=== PATIENT | female | born 1960 | race African-American/Black ===

== ENCOUNTER 2016-11-25 08:47 | Emergency (ER) | payer OTHER ==
[~2016-11-25] VITALS: Ht 170.2 cm; Wt 112.9 kg
[~2016-11-25 08:47] MED LIST: CYCLOBENZAPRINE10 MG PO; DESYREL 150 MG150 MG PO; DIAZEPAM5 MG PO; DICLOFENAC SODI75 MG PO; FIORICET 50-301 EACH PO; FLEXERIL10 MG PO; KENALOG,ARISTOC15 G2 TP; LEVAQUIN750 MG PO; LIDODERM 5% P1 PATCH TD; LORATADINE10 M2 PO; LORCET 5-325 M1 EACH PO; MELOXICAM7.5 MG PO; METHIMAZOLE5 MG PO; MUCUS ER600 MG PO; NAPROSYN500 MG PO; NAPROXEN500 MG PO; NORCO 5/3251 TABLET PO; OMEPRAZOLE20 MG PO; PAROXETINE HCL10 MG PO; PRAMIPEXOLE D0.25 MG PO; PREDNISONE20 MG PO; PREMARIN0.625 MG PO; PROAIR HFA8.5 GM IH; PROVENTIL,2.5 MG/3 M IH; ROBITUSSIN NIG118 ML PO; TESSALON PERLE100 MG PO; TYLENOL WITH C1 EACH PO; ULTRAM50 MG PO; VALIUM5 MG PO; ZITHROMAX250 MG PO
[2016-11-25] MEDS ORDERED: PREMARIN0.625 MG PO (10:15)
[2016-11-25] MEDS ORDERED: CYCLOBENZAPRINE10 MG PO (10:15)
[2016-11-25] MEDS ORDERED: ROPINIROLE HCL1 MG PO (10:15)
[2016-11-25] MEDS ORDERED: MELOXICAM15 MG PO (10:16)
[2016-11-25] MEDS ORDERED: TOPIRAMATE50 MG PO (10:16)
[2016-11-25] MEDS ORDERED: CLONAZEPAM0.5 MG PO (10:17)
[2016-11-25] MEDS ORDERED: AMITRIPTYLINE100 MG PO (10:17)
[2016-11-25 11:46] VITALS: BP 139/88
== END 2016-11-25 11:47 | disposition home or self-care (01) ==
LOC: EME 08:47
DX: S16.1XXA Strain of muscle, fascia and tendon at neck level, initial encounter (principal); S40.012A Contusion of left shoulder, initial encounter; G43.909 Migraine, unspecified, not intractable, without status migrainosus; W10.9XXA Fall (on) (from) unspecified stairs and steps, initial encounter; Z85.818 Personal history of malignant neoplasm of other sites of lip, oral cavity, and pharynx; Z88.0 Allergy status to penicillin; Z88.6 Allergy status to analgesic agent
CPT/HCPCS: 71100; 73030; 99281; 99284; J1885

== ENCOUNTER 2016-11-30 14:09 | Emergency (ER) | payer OTHER ==
[~2016-11-30] VITALS: Ht 170.2 cm; Wt 114.3 kg
[~2016-11-30 14:09] MED LIST changes: +AMITRIPTYLINE100 MG PO; +CLONAZEPAM0.5 MG PO; +MELOXICAM15 MG PO; +ROPINIROLE HCL1 MG PO; +TOPIRAMATE50 MG PO
[2016-11-30] MEDS ORDERED: PREDNISONE20 MG PO (16:23)
[2016-11-30 16:38] VITALS: BP 136/72
== END 2016-11-30 16:38 | disposition home or self-care (01) ==
LOC: EME 14:09
DX: J44.1 Chronic obstructive pulmonary disease with (acute) exacerbation (principal); K21.9 Gastro-esophageal reflux disease without esophagitis; E03.9 Hypothyroidism, unspecified; F17.200 Nicotine dependence, unspecified, uncomplicated
CPT/HCPCS: 71020; 93005; 99281; 99284; J7512

== ENCOUNTER 2016-12-17 16:14 | Emergency (ER) | payer OTHER | END 2016-12-17 17:09 | disposition left against medical advice (07) | LOC: EME 16:14 | DX: R68.89 Other general symptoms and signs (principal); Z53.21 Procedure and treatment not carried out due to patient leaving prior to being seen by health care provider | CPT/HCPCS: 93005 ==

== ENCOUNTER 2017-03-06 12:10 | Emergency (ER) | payer OTHER ==
[~2017-03-06] VITALS: Ht 170.2 cm; Wt 111.9 kg
[2017-03-06 12:14] VITALS: BP 14/97
[2017-03-06] MEDS ORDERED: SERTRALINE HCL25 MG PO (12:44)
[2017-03-06] MEDS ORDERED: OMEPRAZOLE20 M2 PO (12:45)
[2017-03-06] MEDS ORDERED: PROPRANOLOL HC120 MG PO (12:45)
== END 2017-03-06 14:47 | disposition left against medical advice (07) ==
LOC: EME 12:10
DX: S80.11XA Contusion of right lower leg, initial encounter (principal); M25.551 Pain in right hip; M25.561 Pain in right knee; M25.571 Pain in right ankle and joints of right foot; W10.9XXA Fall (on) (from) unspecified stairs and steps, initial encounter; I10 Essential (primary) hypertension; Z85.819 Personal history of malignant neoplasm of unspecified site of lip, oral cavity, and pharynx; Z90.710 Acquired absence of both cervix and uterus; Z79.890 Hormone replacement therapy; F17.200 Nicotine dependence, unspecified, uncomplicated
CPT/HCPCS: 73502; 73564; 73610

== ENCOUNTER 2017-06-01 16:07 | Emergency (ER) | payer OTHER ==
[~2017-06-01] VITALS: Ht 170.2 cm; Wt 112.6 kg
[~2017-06-01 16:07] MED LIST changes: +OMEPRAZOLE20 M2 PO; +PROPRANOLOL HC120 MG PO; +SERTRALINE HCL25 MG PO
[2017-06-01 16:18] VITALS: BP 115/80
[2017-06-01] MEDS ORDERED: MOTRIN800 MG PO (16:38)
[2017-06-01] MEDS ORDERED: PREDNISONE20 MG PO (16:38)
[2017-06-01] MEDS ORDERED: BENADRYL50 MG PO (16:38)
== END 2017-06-01 17:07 | disposition home or self-care (01) ==
LOC: EME 16:07
DX: T49.4X1A Poisoning by keratolytics, keratoplastics, and other hair treatment drugs and preparations, accidental (unintentional), initial encounter (principal); T20.45XA Corrosion of unspecified degree of scalp [any part], initial encounter; F17.200 Nicotine dependence, unspecified, uncomplicated
CPT/HCPCS: 99281; 99284; J7512

== ENCOUNTER 2017-07-28 09:13 | Emergency (ER) | payer OTHER ==
[~2017-07-28] VITALS: Ht 170.2 cm; Wt 113.1 kg
[~2017-07-28 09:13] MED LIST changes: +BENADRYL50 MG PO; +MOTRIN800 MG PO
[2017-07-28] MEDS ORDERED: NAPROXEN500 MG PO (11:32)
[2017-07-28] MEDS ORDERED: NORCO 5/3251 TABLET PO (11:32)
[2017-07-28 11:57] VITALS: BP 140/84
== END 2017-07-28 11:57 | disposition home or self-care (01) ==
LOC: EME 09:13
DX: S91.201A Unspecified open wound of right great toe with damage to nail, initial encounter (principal); W23.1XXA Caught, crushed, jammed, or pinched between stationary objects, initial encounter; W18.40XA Slipping, tripping and stumbling without falling, unspecified, initial encounter; Y93.E1 Activity, personal bathing and showering; Y92.002 Bathroom of unspecified non-institutional (private) residence as the place of occurrence of the external cause; Z88.0 Allergy status to penicillin; Z88.5 Allergy status to narcotic agent; Z91.040 Latex allergy status; Z88.8 Allergy status to other drugs, medicaments and biological substances
CPT/HCPCS: 73630; 99281; 99284

== ENCOUNTER 2017-08-12 17:17 | Emergency (ER) | payer OTHER ==
[~2017-08-12] VITALS: Ht 170.2 cm; Wt 115.0 kg
[2017-08-12 18:59] VITALS: BP 150/79
== END 2017-08-12 18:59 | disposition home or self-care (01) ==
LOC: EME 17:17
DX: M79.89 Other specified soft tissue disorders (principal); M25.461 Effusion, right knee; M79.604 Pain in right leg; Z86.718 Personal history of other venous thrombosis and embolism; Z85.818 Personal history of malignant neoplasm of other sites of lip, oral cavity, and pharynx; Z90.710 Acquired absence of both cervix and uterus; F17.200 Nicotine dependence, unspecified, uncomplicated
CPT/HCPCS: 99281; 99283

== ENCOUNTER 2017-09-01 15:31 | Emergency (ER) | payer OTHER ==
[~2017-09-01] VITALS: Ht 170.2 cm; Wt 112.3 kg
[2017-09-01 15:47] VITALS: BP 114/86
[2017-09-01 17:02] LABS: AMPHETAMINE PRESUMPTIVE POSITIVE (500 ng/mL); BARBITURATES NEGATIVE (200 ng/mL); BENZODIAZEPINES NEGATIVE (150 ng/mL); COCAINE NEGATIVE (150 ng/mL); METHADONE NEGATIVE (200 ng/mL); METHAMPHETAMINE NEGATIVE (500 ng/mL); OPIATES (MORPHINE) NEGATIVE (100 ng/mL); OXYCODONE NEGATIVE (100 ng/mL); PHENCYCLIDINE NEGATIVE (25 ng/mL); PROPOXYPHENE PRESUMPTIVE POSITIVE (300 ng/mL); THC CANNABINOIDS PRESUMPTIVE POSITIVE (50 ng/mL); TRICYCLIC ANTIDEPRESSANTS NEGATIVE (300 ng/mL)
[2017-09-01 17:03] LABS: BUPRENORPHINE NEGATIVE (10 ng/mL)
== END 2017-09-01 16:50 | disposition left against medical advice (07) ==
LOC: EME 15:31
PROVIDERS: Physician Assistant
DX: Z53.21 Procedure and treatment not carried out due to patient leaving prior to being seen by health care provider (principal)
CPT/HCPCS: 84999

== ENCOUNTER 2017-12-15 10:50 | Emergency (ER) | payer OTHER ==
[~2017-12-15] VITALS: Ht 170.2 cm; Wt 111.3 kg
[2017-12-15 10:55] VITALS: BP 152/92
[2017-12-15] MEDS ORDERED: BACTRIM,SEPT1 TABLET PO (12:46)
== END 2017-12-15 13:05 | disposition home or self-care (01) ==
LOC: EME 10:50
DX: K64.5 Perianal venous thrombosis (principal); J45.909 Unspecified asthma, uncomplicated; K21.9 Gastro-esophageal reflux disease without esophagitis; E03.9 Hypothyroidism, unspecified; F17.200 Nicotine dependence, unspecified, uncomplicated; Z85.819 Personal history of malignant neoplasm of unspecified site of lip, oral cavity, and pharynx; Z88.5 Allergy status to narcotic agent; Z88.0 Allergy status to penicillin; Z91.040 Latex allergy status; Z88.6 Allergy status to analgesic agent
CPT/HCPCS: 80048; 85027

== ENCOUNTER 2017-12-21 12:19 | Emergency (ER) | payer OTHER ==
[~2017-12-21] VITALS: Ht 170.2 cm; Wt 108.8 kg
[~2017-12-21 12:19] MED LIST changes: +BACTRIM,SEPT1 TABLET PO
[2017-12-21] MEDS ORDERED: LIDODERM 5% P1 PATCH TD (15:14)
[2017-12-21 15:29] VITALS: BP 135/98
== END 2017-12-21 15:30 | disposition home or self-care (01) ==
LOC: EME 12:19
DX: S39.012A Strain of muscle, fascia and tendon of lower back, initial encounter (principal); X50.0XXA Overexertion from strenuous movement or load, initial encounter; G89.29 Other chronic pain; Z88.5 Allergy status to narcotic agent; F17.200 Nicotine dependence, unspecified, uncomplicated; Z88.0 Allergy status to penicillin
CPT/HCPCS: 72100; 99281; 99283; J1885

== ENCOUNTER 2018-01-05 14:35 | Emergency (ER) | payer OTHER ==
[~2018-01-05] VITALS: Ht 170.2 cm; Wt 111.0 kg
[2018-01-05 16:04] VITALS: BP 138/98
== END 2018-01-05 16:00 | disposition home or self-care (01) ==
LOC: EME 14:35
DX: R59.1 Generalized enlarged lymph nodes (principal); Z85.01 Personal history of malignant neoplasm of esophagus; F17.200 Nicotine dependence, unspecified, uncomplicated; Z88.0 Allergy status to penicillin; Z88.5 Allergy status to narcotic agent
CPT/HCPCS: 99281; 99283

== ENCOUNTER 2018-02-21 11:57 | Emergency (ER) | payer OTHER ==
[~2018-02-21] VITALS: Ht 170.2 cm; Wt 112.4 kg
[2018-02-21 13:23] LABS: HEMATOCRIT 38.7 % (36.0-46.0); HEMOGLOBIN 12.8 G/DL (11.9-15.5); MCH 28.8 PG (29.0-34.0); MCHC 33.1 G/DL (30.0-36.0); PLATELET COUNT 251 K/uL (156-360); RBC DIS.WIDTH-CV 14.6 % (11.8-14.6); RBC DIS.WIDTH-SD 46.7 % (39-53); RED BLOOD COUNT 4.45 M/uL (3.80-5.20); WHITE BLOOD COUNT 7.6 K/uL (4.1-10.2)
[2018-02-21 13:31] LABS: CHLORIDE 102 mEq/L (99-109); POTASSIUM 4.6 mEq/L (3.7-5.4); SODIUM 140 mEq/L (136-147)
[2018-02-21 13:33] LABS: GLUCOSE 92 mg/dL (70-99)
[2018-02-21 13:37] LABS: CREATININE 0.9 mg/dL (0.6-1.3); GFR ESTIMATE (CALCULATED) > 59 mL/min/
[2018-02-21 13:38] LABS: UREA NITROGEN (BUN) 13 mg/dL (9-23)
[2018-02-21] MEDS ORDERED: FIORICET,ESG1 TABLET PO (13:42)
[2018-02-21 13:44] LABS: ERTH.SED.RATE 56 MM/HR (0-30)
[2018-02-21 14:04] LABS: C-REACTIVE PROTEIN 50.8 MG/L (0-10)
[2018-02-21] MEDS ORDERED: DELTASONE20 M1 PO (14:14)
[2018-02-21 14:20] VITALS: BP 120/99
== END 2018-02-21 14:25 | disposition home or self-care (01) ==
LOC: EME 11:57
PROVIDERS: Nurse Practitioner Family
DX: H11.31 Conjunctival hemorrhage, right eye (principal); R51 Headache; Z82.49 Family history of ischemic heart disease and other diseases of the circulatory system; Z88.0 Allergy status to penicillin; Z88.5 Allergy status to narcotic agent; Z91.040 Latex allergy status
CPT/HCPCS: 70450; 80048; 85027; 85651; 86140; 99281; 99283; J7512